=== PATIENT | female | born 1965 | race Caucasian/White ===

== ENCOUNTER → 2020-09-21 12:37 | Outpatient (CLI) | payer OTHER, SELFPAY ==
--- NOTE | ~2020-09-21 | MM_ITS ---
EXAMINATION: MM screening joselo BI w kimberly HISTORY: Screening mammogram TECHNIQUE: Craniocaudal and mediolateral oblique 3-D tomosynthesis images were obtained and synthetic 2-D images were generated. CAD analysis was submitted and interpreted. COMPARISON: 05/26/2019, 05/24/2018, 07/03/2014 bilateral digital screening mammogram examinations BREAST PARENCHYMAL COMPOSITION: There are scattered areas of fibroglandular density. FINDINGS: Stable bilateral small circumscribed axillary tail lymph nodes. Recommend diagnostic magnification views of grouped microcalcifications in the posterior upper outer right breast. Recommend diagnostic compression views of left breast asymmetries including irregular approximately 3 .5 mm opacity approximately 7.5 cm deep to the nipple in the central left breast on MLO view IMPRESSION: 1. Right breast grouped microcalcifications in posterior upper outer quadrant 2. Left breast mammographic asymmetries including irregular 3.5 mm opacity in the central left breast 7.5 cm deep to the nipple on MLO view 3. Recommend bilateral diagnostic mammography, with ultrasound if required BI-RADS Category 0: Incomplete: Needs additional imaging evaluation. Reviewed, dictated and finalized at location A. IMPRESSION: 1. Right breast grouped microcalcifications in posterior upper outer quadrant 2. Left breast mammographic asymmetries including irregular 3.5 mm opacity in t he central left breast 7.5 cm deep to the nipple on MLO view 3. Recommend bilateral diagnostic mammography, with ultrasound if required BI-RADS Category 0: Incomplete: Needs additional imaging evaluation.
== END ==
PROVIDERS: PCP Physician Assistant; Visit Provider Physician Assistant
DX: Z12.31 Encounter for screening mammogram for malignant neoplasm of breast (principal); R92.8 Other abnormal and inconclusive findings on diagnostic imaging of breast
CPT/HCPCS: 77063; 77067

== ENCOUNTER → 2020-10-15 08:25 | Outpatient (CLI) | payer OTHER, SELFPAY ==
--- NOTE | ~2020-10-15 | MM_ITS ---
EXAMINATION: MM diagnostic mammo BI HISTORY: Left breast asymmetry and indeterminate right breast calcifications on screening mammogram TECHNIQUE: Additional 3-D tomosynthesis images of the breasts were performed and synthetic 2-D images were generated. Magnification views of the right breast are also obtained. CAD analysis was submitte d and interpreted. COMPARISON: Prior mammograms dating back to 05/24/2007 FINDINGS: Right breast: Grouped calcifications in the far posterior third of the upper outer quadrant of the br east appear to be round in morphology and demonstrate a stable appearance with magnification when com pared to prior mammograms. Left breast: No persistent asymmetry is identified with spot compression views of the left breast. IMPRESSION: 1. No mammographic evidence of malignancy. 2. Recommend routine screening mammography in one year. BI-RADS Category 2: Benign finding(s). Reviewed, dictated and finalized at location A.
== END ==
PROVIDERS: Visit Provider Physician Assistant
DX: R92.8 Other abnormal and inconclusive findings on diagnostic imaging of breast (principal)
CPT/HCPCS: 77066

== ENCOUNTER → 2021-12-20 10:17 | Outpatient (CLI) | payer OTHER, SELFPAY ==
--- NOTE | ~2021-12-20 | MM_ITS ---
EXAMINATION: MM screening joselo BI w kimberly HISTORY: Screening TECHNIQUE: Craniocaudal and mediolateral oblique 3-D tomosynthesis images were obtained and synthetic 2-D images were generated. CAD analysis was submitted and interpreted. COMPARISON: Comparison to multiple prior studies sequentially, with oldest reviewed study dated 09/2014. BREAST PARENCHYMAL COMPOSITION: There are scattered areas of fibroglandular density. FINDINGS: There is a mass in the lower central aspect of the left breast which appears new compared w ith prior examination. The right breast is stable without evidence for malignancy. IMPRESSION: 1. New left breast mass, lower central aspect. 2. Additional mammographic views and possible breast ultrasound are recommended. BI-RADS Category 0: Incomplete: Needs additional imaging evaluation. Reviewed, dictated and finalized at location A. IMPRESSION: 1. New left breast mass, lower central aspect. 2. Additional mammographic views and possible breast ultrasound are recommended . BI-RADS Category 0: Incomplete: Needs additional imaging evaluation.
== END ==
PROVIDERS: PCP Physician Assistant; Visit Provider Physician Assistant
DX: Z12.31 Encounter for screening mammogram for malignant neoplasm of breast (principal); R92.8 Other abnormal and inconclusive findings on diagnostic imaging of breast
CPT/HCPCS: 77063; 77067

== ENCOUNTER → 2022-01-13 14:11 | Outpatient (CLI) | payer OTHER, SELFPAY ==
--- NOTE | ~2022-01-13 | MMUS_ITS ---
EXAMINATION: MM diagnostic joseol LT w kimberly, US breast LT limited HISTORY: Lower central left breast mass reported on 12/20/2021 screening mammogram TECHNIQUE: Additional 3-D tomosynthesis images of the left breast were performed and synthetic 2-D im ages were generated. CAD analysis was submitted and interpreted. High resolution lower inner quadrant left breast ultrasound was performed. COMPARISON: 12/20/2021 bilateral screening mammogram FINDINGS: MAMMOGRAPHIC FINDINGS: Approximately 4.5 x 6.5 mm circumscribed Approximately 2.4 x 4 mm and 5.3 x 10 mm circumscribed opacities are noted in the central left breast approximately 4 cm deep to the nipple. Mass is noted in the anterior lower left breast near nipple, slightly medial to the mid sagittal plane. ULTRASOUND: 7:00 4 cm from nipple: Approximately 1.8 x 3.1 mm sonolucency, likely a small cyst 6:00 3 cm from nipple: Parallel circumscribed hypoechoic approximately 2.4 x 5.2 x 4.5 mm mass with c entral fatty density, likely a small benign lymph node Subareolar area: Approximately 4 x 7 x 8.2 mm sonolucency consistent with cyst No suspicious mass or shadowing is detected. IMPRESSION: 1. Benign findings 2. Routine annual mammographic screening is recommended BI-RADS Category 2: Benign finding(s). Reviewed, dictated and finalized at location A. IMPRESSION: 1. Benign findings 2. Routine annual mammographic screening is recommended BI-RADS Category 2: Benign finding(s).
== END ==
PROVIDERS: PCP Physician Assistant; Visit Provider Physician Assistant
DX: N63.24 Unspecified lump in the left breast, lower inner quadrant (principal)
CPT/HCPCS: 76642; 77061; 77065; G0279

== ENCOUNTER 2023-07-06 13:14 | Outpatient (CLI) | payer OTHER, SELFPAY ==
--- NOTE | ~2023-07-06 | MM_ITS ---
EXAMINATION: MM screening joselo BI w kimberly HISTORY: Screening mammogram TECHNIQUE: Craniocaudal and mediolateral oblique 3-D tomosynthesis images were obtained and synthetic 2-D images were generated. Bilateral rotated lateral CC views. CAD analysis was submitted and interp reted. COMPARISON: 01/13/2022 diagnostic left mammogram and limited left breast ultrasound 12/20/2021 bilateral screening mammogram BREAST PARENCHYMAL COMPOSITION: There are scattered areas of fibroglandular density. FINDINGS: Scattered bilateral small masses, without significant change or significant new or developi ng density There is no evidence of suspicious mass, calcification, or architectural distortion to sug gest malignancy in either breast. IMPRESSION: 1. No mammographic evidence of malignancy. 2. Recommend routine screening mammography in one year. BI-RADS Category 2: Benign finding(s). Reviewed, dictated and finalized at location A. R HELPER
== END 2023-07-06 13:15 ==
LOC: MICIMG 13:16
PROVIDERS: PCP Physician Assistant; Visit Provider Physician Assistant
DX: Z12.31 Encounter for screening mammogram for malignant neoplasm of breast (principal)
CPT/HCPCS: 77063; 77067

== ENCOUNTER 2024-09-04 15:34 | Outpatient (CLI) | payer OTHER, SELFPAY ==
--- NOTE | ~2024-09-04 | MM_ITS ---
EXAMINATION: MM screening joselo BI w kimberly HISTORY: Screening TECHNIQUE: Craniocaudal and mediolateral oblique 3-D tomosynthesis images were obtained and synthetic 2-D images were generated. CAD analysis was submitted and interpreted. COMPARISON: Comparison to multiple prior studies sequentially, with oldest reviewed study dated 05/26. BREAST PARENCHYMAL COMPOSITION: Not dense: There are scattered areas of fibroglandular density. FINDINGS: There is no evidence of suspicious mass, calcification, or architectural distortion to sugg est malignancy in either breast. There has been no suspicious interval change. IMPRESSION: 1. No mammographic evidence of malignancy. 2. Recommend routine screening mammography in one year. BI-RADS Category 1: Negative Reviewed, dictated and finalized at location A.
== END 2024-09-04 15:35 | disposition home or self-care (01) ==
LOC: MICIMG 15:36
PROVIDERS: PCP Student in an Organized Health Care Education/Training Program; Visit Provider Obstetrics & Gynecology
DX: Z12.31 Encounter for screening mammogram for malignant neoplasm of breast (principal)
CPT/HCPCS: 77063; 77067